=== PATIENT | female | born 1950 | race Caucasian/White ===

== ENCOUNTER 2021-02-22 16:04 | Emergency (ER) | payer MEDICARE, OTHER ==
[~2021-02-22] VITALS: Ht 170.2 cm; Wt 81.4 kg
[2021-02-22 19:17] VITALS: BP 142/70
== END 2021-02-22 19:44 | disposition home or self-care (01) ==
LOC: ED 19:41
DX: M79.661 Pain in right lower leg (principal)
CPT/HCPCS: 99284